=== PATIENT | female | born 1955 | race Caucasian/White ===

== ENCOUNTER 2016-12-30 10:55 | Day surgery (SDC) | payer OTHER ==
[~2016-12-30] VITALS: Ht 160 cm; Wt 70.5 kg
[~2016-12-30 10:55] MED LIST: ALBU8.5H3 INH; BLOOD PRESSURE MED; GABA300C16 PO; OMEP20CA16 PO; SUCRALFATE
[2016-12-30] MEDS ORDERED: NAPROXEN (11:14)
[2016-12-30] MEDS ORDERED: LYRICA (11:14)
[2016-12-30 11:17] VITALS: Ht 160 cm; Wt 70.5 kg
[2016-12-30 11:40] VITALS: BP 126/61; PULSE 77; RESP 18
[2016-12-30] MEDS ORDERED: MIDAZOLAM 1 MG/ML 2 ML INJ ONE ×2 (12:10)
[2016-12-30] MEDS ORDERED: FENTAnyl 50 MCG/ML VIAL ONE ×2 (12:10)
[2016-12-30 12:35] VITALS: BP 117/58; RESP 20
--- NOTE | 2016-12-30 23:45 | GILP ---
DATE OF PROCEDURE: NAME OF PROCEDURE: Colonoscopy. SURGEON: Jaki Perry MD PREOPERATIVE DIAGNOSES: 1. Change in the bowel habit. 2. Lower abdominal pain. POSTOPERATIVE DIAGNOSES: 1. Colonoscopy all the way to the cecum. 2. Internal hemorrhoids. 3. No colon neoplasm was identified. INDICATION FOR THE PROCEDURE: Ms. Marquita Gallagher a 61-year-old female patient who noticed a change in the bowel habit and she also had lower abdominal pain. The patient was scheduled for colonoscopy fo r further evaluation. The procedure and possible complications were well explained to the patient. She understood and con sented to the procedure. DESCRIPTION OF PROCEDURE: Under the influence of fentanyl and Versed, the colonoscope was carefully introduced in the rectum. Under direct vision, it was advanced all the way to the cecum. FINDINGS: The patient had internal hemorrhoids. No colon neoplasm was identified. She tolerated the procedure very well and there was no complication from the procedure. At the end of the procedure, she was awake with stable vital signs and she was discharged home to the care of h er family. IMPRESSION: 1. Colonoscopy all the way to the cecum. 2. Internal hemorrhoids. 3. No colon neoplasm was identified. PLAN: Next screening colonoscopy in 10 years. Dictated By: JAKI MIGUEL/MAYE Conf#: [id number] DID#: [id number] CC: JAKI PERRY MD;*EndCC*
== END 2016-12-30 13:34 | disposition home or self-care (01) ==
LOC: GIL 10:55
PROVIDERS: ATTEND Internal Medicine Gastroenterology
DX: R19.4 Change in bowel habit (principal); K64.8 Other hemorrhoids; I10 Essential (primary) hypertension
CPT/HCPCS: 45378; J2250; J3010

== ENCOUNTER 2018-06-16 13:43 | Emergency (ER) | END 2018-06-16 15:22 | disposition home or self-care (01) ==

== ENCOUNTER 2019-04-18 13:59 | Emergency (ER) | payer OTHER ==
[~2019-04-18] VITALS: Ht 165.1 cm; Wt 80.0 kg
[~2019-04-18 13:59] MED LIST changes: -ALBU8.5H3 INH; -GABA300C16 PO; +LYRICA; +MECL12.574 PO; +NAPROXEN
[2019-04-18 14:14] VITALS: BP 150/76; PULSE 85; RESP 16; Ht 165.1 cm; Wt 80.0 kg
--- NOTE | 2019-04-18 14:33 | ERD ---
ER Documentation Chief Complaint Chief Complaint RIGHT HEAD PAIN WITH RIGHT EAR PAIN X 4 DAYS HPI 63-year-old female, with history of hypertension and fibromyalgia, presents to the emergency department, complaining of 4 days with worsening of right ear pain associated with sore throat. The patient denies dizziness, no blurred vision, no difficulty swallowing. The pain is described as sharp, throbbing, 6/10. The patient has been taking naproxen with mild improvement of the symptoms. ROS All systems reviewed and are negative except as per history of present illness. Medications Home Meds Active Scripts Ibuprofen* (Motrin*) 400 Mg Tab, 400 MG PO Q6H PRN for PAIN AND OR ELEVATED TEMP, #20 TAB Prov:OMAR CONNER MD 04/18/19 Hydrocodone/Acetaminophen ([place] 5-325 Tablet) 1 Each Tablet, 1 TAB PO BID PRN for PAIN, #6 TAB Prov:OMAR CONNER MD 04/18/19 Azithromycin* (Zithromax*) 250 Mg Tablet, 250 MG PO .ZPACK DIRECTED, #6 TAB TAKE 500 MG (2 TABS) THE FIRST DAY THEN 250 MG (1 TAB) DAYS 2-5 Prov:OMAR CONNER MD 04/18/19 Meclizine Hcl* (Antivert*) 12.5 Mg Tab, 12.5 MG PO Q6H PRN for DIZZINESS, #20 TAB Prov:HOLLY NOVAK PA-C 06/16/18 Reported Medications [Lyrica] No Conflict Check 12/30/16 [Naproxen] No Conflict Check 12/30/16 [Sucralfate] No Conflict Check 09/24/16 [Blood Pressure Med] No Conflict Check 09/24/16 Omeprazole* (Omeprazole*) 20 Mg Capsule.dr, 20 MG PO DAILY, CAP 01/17/15 Allergies Allergies: Coded Allergies: Penicillins (Verified Allergy, Unknown, 01/25/15) PMhx/Soc History of Surgery: Yes (RIGHT OOPHRECTOMY, APPENDECTOMY) Anesthesia Reaction: No Hx Neurological Disorder: Yes (FIBROMYALGIA) Hx Respiratory Disorders: No Hx Cardiac Disorders: Yes (HTN) Hx Psychiatric Problems: No Hx Miscellaneous Medical Probl: No Hx Alcohol Use: No Hx Substance Use: No Hx Tobacco Use: No FmHx Family History: other (Hypertension) Physical Exam Vitals Vital Signs Date Temp Pulse Resp B/P (MAP) Pulse Ox O2 O2 Flow FiO2 Time Delivery Rate 04/18/19 98.9 85 16 150/76 95 14:14 (100) Physical Exam Patient alert, oriented, vital signs stable. HEENT: Normocephalic, atraumatic. EYES: PERRLA, EOMI, Sclera and conjunctiva appear normal. EARS: Right ear with significant tympanic membrane erythema, retraction and op acity with edema of the canal. Contralateral ear normal. THROAT: Erythematous oropharynx. NECK: Supple, No lymphadenopathy. Full ROM without pain or tenderness. HEART: RRR, no rubs, murmurs, clicks or gallops. LUNGS: Clear to auscultation. ABDOMEN: Soft, non-tender without masses or hepatosplenomegaly. EXTREMITIES: No edema bilaterally. BACK: Full ROM, no deformity, normal back exam NEURO: Cranial nerves grossly intact, no motor or sensory deficit Procedures/MDM Vital signs stable, differential diagnosis include but not limited to: infection bacterial/viral/fungal. Tonsillitis, eustachian dysfunction, allergies, foreign body, cholesteatoma. Less likely mastoiditis, malignant otitis, meningitis. Physical examination and clinical presentation consistent most likely with right otitis media. During the ED course the patient remained stable, no new complaints. Clinical impression discussed with the patient who agrees with management. The patient is stable to be treated outpatient and will be discharged home with a Rx for antibiotics and pain medication. Some side effects of prescribed medications (headache, rash, nausea, vomiting, diarrhea, interactions with other medications) were reviewed. The patient was instructed to follow up with the primary care provider in the next 48h. If symptoms persist, worsen or new symptoms develop, then patient should return to the ED immediately. Disclaimer: Inadvertent spelling and grammatical errors are likely due to EHR/dictation software use and do not reflect on the overall quality of patient care. Also, please note that the electronic time recorded on this note does not necessarily reflect the actual time of the patient encounter. Departure Diagnosis: Primary Impression: Right otitis media Condition: Stable Additional Instructions: Muchas tio por [facility] para william servicio. Esperamos que en william visita a la barry de emergencia william problema medico haya sido solucionado y que se sienta mucho mejor. Para estar seguros que william mejoria sigue en proceso, le pedimos el favor de hacer tayo ricardo de seguimiento medico con william doctor primario en los proximos 2-4 morales. Lleve con usted estos documentos y las medicinas recetadas. Si ron sintomas empeoran, NO SE ESPERE, por favor regrese a barry de emergencia INMEDIATAMENTE. En cleo que usted no tenga un mdico de atencin primaria: Llame al mdico o clnica comunitaria de referencia que aparece abajo amaya las horas de consultorio para hacer tayo ricardo para que le vean. CLINICAS: [facility] [phone] [id number] [phone] [id number] [facility] [id number] [facility] [id number] [facility] [phone] [id number] [facility] [phone] OMAR ALBARRAN MD Apr 18, 2019 14:33
[2019-04-18] MEDS ORDERED: HYDR-4011 PO (14:35)
[2019-04-18] MEDS ORDERED: AZIT250T PO (14:35)
[2019-04-18] MEDS ORDERED: IBUP-1561 PO (14:35)
== END 2019-04-18 15:04 | disposition home or self-care (01) ==
LOC: FTE 13:59
DX: H66.91 Otitis media, unspecified, right ear (principal); I10 Essential (primary) hypertension
CPT/HCPCS: 99283